=== PATIENT | female | born 1965 | race Caucasian/White ===

== ENCOUNTER 2023-12-22 12:20 | Emergency (ER) | payer MEDICAID ==
[~2023-12-22] VITALS: Ht 157.5 cm; Wt 69.0 kg
[2023-12-22 12:28] VITALS: O2SAT 100
[2023-12-22] MEDS: IBUPROFEN 600MG TABLET PO NR (13:59)
[2023-12-22] MEDS: TETANUS, DIPHTHERIA, PERTUSSIS VAC/PF 0.5ML (>10YR OLD) IM ONE (14:01)
[2023-12-22] MEDS: BACITRACIN ZINC OINT UDPKT TOP NR ×2 (14:03→14:04)
[2023-12-22] MEDS: LIDOCAINE HCL/PF 1% 10 MG/ML 5ML VIAL INFIL NR (14:06)
[2023-12-22] MEDS: CEFTRIAXONE SODIUM 1G VIAL IM NR (14:07)
[2023-12-22] MEDS ORDERED: SULF1TAB48 MT (14:10)
[2023-12-22] MEDS ORDERED: AMOX1TAB16 MT (14:10)
[2023-12-22] MEDS ORDERED: NAPR-681 MT (14:10)
[2023-12-22 14:41] VITALS: BP 122/78; PULSE 72; RESP 18; TEMP 36.78072; O2SAT 98
== END 2023-12-22 14:43 | disposition home or self-care (01) ==
LOC: ER 12:34
DX: L03.011 Cellulitis of right finger (principal); F41.9 Anxiety disorder, unspecified; E78.00 Pure hypercholesterolemia, unspecified; F20.9 Schizophrenia, unspecified
CPT/HCPCS: 99284; 73130; 90715; 90471; 96372; J0696; J3490

== ENCOUNTER 2023-12-25 12:14 | Emergency (ER) | payer MEDICAID ==
[~2023-12-25] VITALS: Ht 157.5 cm; Wt 68.0 kg
[~2023-12-25 12:14] MED LIST: AMOX1TAB16 MT; NAPR-681 MT; SULF1TAB48 MT
[2023-12-25 12:23] VITALS: BP 151/94; RESP 16; TEMP 98.5; O2SAT 97
[2023-12-25 12:29] VITALS: PULSE 86; O2SAT 96
== END 2023-12-25 13:41 | disposition home or self-care (01) ==
LOC: ER 12:14
DX: S61.230A Puncture wound without foreign body of right index finger without damage to nail, initial encounter (principal); E78.00 Pure hypercholesterolemia, unspecified; F41.9 Anxiety disorder, unspecified; Z48.00 Encounter for change or removal of nonsurgical wound dressing; Z86.59 Personal history of other mental and behavioral disorders; W53.21XA Bitten by squirrel, initial encounter; Y93.89 Activity, other specified; Y92.89 Other specified places as the place of occurrence of the external cause; Y99.8 Other external cause status
CPT/HCPCS: 99281